=== PATIENT | male | born 1960 | race Caucasian/White ===

== ENCOUNTER 2024-10-10 11:51 | Inpatient (IN) | payer MEDICAID ==
[~2024-10-10] VITALS: Ht 190.5 cm; Wt 81.9 kg
[2024-10-10 12:34] LABS: BASOPHILS # (AUTO) 0.1 X10'3 (0-0.2); BASOPHILS % (AUTO) 0.8 % (0-1); EOSINOPHILS # (AUTO) 0.1 X10'3 (0-0.9); EOSINOPHILS % (AUTO) 0.5 % (0-6); HEMATOCRIT 43.7 % (42.0-52.0); HEMOGLOBIN 15.3 g/dl (14.0-17.9); LYMPHOCYTES # (AUTO) 0.8 X10'3 (1.1-4.8); MEAN CORPUSCULAR HEMOGLOBIN 32.6 PG (27.0-31.0); MEAN CORPUSCULAR HGB CONC 34.9 g/dL (33.0-36.5); MEAN CORPUSCULAR VOLUME 93.4 FL (78-98); MEAN PLATELET VOLUME 8.1 FL (7.4-10.4); MONOCYTES # (AUTO) 1.7 X10'3 (0-0.9); MONOCYTES % (AUTO) 10.8 % (2-12); NEUTROPHILS # (AUTO) 13.4 X10'3 (1.8-7.7); NEUTROPHILS % (AUTO) 82.9 % (42-75); PLATELET COUNT 308 X10'3 (140-440); RED BLOOD COUNT 4.67 X10'6 (4.70-6.10); RED CELL DISTRIBUTION WIDTH 13.3 % (11.5-14.5); WHITE BLOOD COUNT 16.1 X10'3 (4.5-11.0)
[2024-10-10] MEDS: ipratropium/albuterol 3ml nebule NEB ONE (12:40)
[2024-10-10] MEDS: normal saline 1000ML IV soln IVB ONE (12:43)
[2024-10-10 12:44] LABS: ALANINE AMINOTRANSFERASE 35 U/L (12-78); ALBUMIN 3.1 G/DL (3.4-5.0); ALBUMIN/GLOBULIN RATIO 0.6 (1.1-1.5); ALKALINE PHOSPHATASE 113 IU/L (46-116); ANION GAP 9 (8-16); ASPARTATE AMINO TRANSFERASE 22 U/L (10-37); BILIRUBIN,TOTAL 1.4 MG/DL (0.1-1.0); BLOOD UREA NITROGEN 10 MG/DL (7-18); BUN/CREATININE RATIO 10.1 (10.0-20.0); CALCIUM 9.3 MG/DL (8.5-10.1); CHLORIDE 95 MMOL/L (99-107); CREATININE 0.99 MG/DL (0.60-1.10); GLUCOSE 138 MG/DL (70-104); POTASSIUM 4.1 MMOL/L (3.5-5.1); SODIUM 132 MMOL/L (135-145); TOTAL CARBON DIOXIDE 28.5 MMOL/L (24-32); eCRCL 90 ML/MIN; eGFR 77 ML/MIN
[2024-10-10] MEDS: ketorolac trometh 15mg/ml vial 15 MG/ML ML IV ONE (12:44)
[2024-10-10 12:51] LABS: PRO BRAIN NATRIURETIC PEPTIDE 81 PG/ML (0-125)
[2024-10-10 13:02] LABS: D-DIMER 1.08 MG/L FEU (0-0.50)
[2024-10-10] MEDS: CefTRIAXone 2gm/D5W 50ml BAG 50 ML IV ONE (13:14)
[2024-10-10] MEDS ORDERED: LORazepam 1 MG tablet PO ONE (14:00)
[2024-10-10] MEDS ORDERED: HYDROcodone/acetaminophen 5mg/325mg tablet PO ONE (14:00)
[2024-10-10] MEDS ORDERED: ibuprofen tablet 400 MG TABLET PO ONE (14:00)
[2024-10-10] MEDS: azithromycin/NS 500mg/250ml 250 ML IV ONE (14:01)
[2024-10-10] MEDS ORDERED: potassium Cl 40MEQ/1/2NS 520ml 520 ML IV PRN (14:25)
[2024-10-10] MEDS ORDERED: acetaminophen 325mg tablet PO PRN ×2 (14:25)
[2024-10-10] MEDS ORDERED: potassium Cl 20 mEq SR tablet PO PRN ×2 (14:25)
[2024-10-10] MEDS ORDERED: mag hydrox/Alum hydrox/simeth 30ml oral suspension PO PRN (14:25)
[2024-10-10] MEDS ORDERED: magnesium hydroxide 30ml (MOM) UD suspension PO PRN (14:25)
[2024-10-10] MEDS ORDERED: HYDROmorphone/PF 0.2 MG/ML SYRINGE IV PRN (14:25)
[2024-10-10] MEDS ORDERED: HYDROmorphone inj. 0.5 MG/0.5 ML DISP.SYRIN IV PRN (14:25)
[2024-10-10] MEDS ORDERED: magnesium sulf-water 4G/100mL 100 ML IV PRN (14:25)
[2024-10-10] MEDS ORDERED: ondansetron/PF 4mg/2ml inj IV PRN (14:25)
[2024-10-10] MEDS ORDERED: magnesium sulf-water 2g/50mL 50 ML IV PRN (14:25)
[2024-10-10] MEDS ORDERED: magnesium Cl slow-release 64mg tablet PO PRN (14:25)
[2024-10-10] MEDS ORDERED: albuterol 2.5 MG/3 ML nebule NEB PRN (14:35)
[2024-10-10] MEDS: ipratropium/albuterol 3ml nebule NEB SCH (14:51)
[2024-10-10 14:55] VITALS: PULSE 72; PULSE 79; RESP 16; RESP 17; O2SAT 100; O2SAT 96
[2024-10-10] MEDS: normal saline 1000ml 1,000 ML IV SCH (15:44)
[2024-10-10] MEDS: methylPREDNISolone sod succ 125mg/2ml vial IV ONE (15:44)
[2024-10-10] MEDS: heparin, porcine 5000 units/ml vial SQ SCH (16:00)
[2024-10-10] MEDS ORDERED: iohexol 350MG/ML 100ml bottle IV ONE (16:05)
[2024-10-10] MEDS ORDERED: LORA10TA7 PO (17:54)
[2024-10-10] MEDS ORDERED: BUDE10.7 INH (17:54)
[2024-10-10 18:18] LABS: BILIRUBIN,DIRECT 0.3 MG/DL (0-0.3)
[2024-10-10 18:40] LABS: BILIRUBIN,URINE NEGATIVE (Neg); CLARITY,URINE CLEAR (Clear); COLOR,URINE YELLOW (Yellow); GLUCOSE, URINE NEGATIVE (Neg); KETONES,URINE TRACE mg/dl (Neg); LEUKOCYTE ESTERASE ,URINE NEGATIVE (Neg); NITRITES, URINE NEGATIVE (Neg); OCCULT BLOOD,URINE NEGATIVE (Neg); PH,URINE 5.5 (4.8-8.0); PROTEIN,URINE NEGATIVE (Neg); UROBILINOGEN,URINE 0.2 E.U/dL (0.2-1.0)
[2024-10-10 18:49] LABS: UA COLLECTION TYPE VOIDED
[2024-10-10 19:09] VITALS: PULSE 64; RESP 16; O2SAT 94
[2024-10-10 19:12] LABS: SODIUM,URINE RANDOM < 15 MEQ/L
[2024-10-10 19:17] VITALS: PULSE 57; RESP 16
[2024-10-10 19:30] LABS: OSMOLALITY UA 289 MOSM/K (50-1400)
[2024-10-10] MEDS: docusate sod 100mg capsule PO SCH (20:00)
[2024-10-10] MEDS: methylPREDNISolone sod succ/PF 40mg inj. IV SCH (20:20)
[2024-10-10] MEDS: K and/or MAG REPLACEMENT MC SCH (20:23)
[2024-10-10 22:39] VITALS: PULSE 74; RESP 16; O2SAT 98
[2024-10-10 22:46] VITALS: PULSE 73; RESP 16
[2024-10-10 23:30] VITALS: BP 153/71; PULSE 78; RESP 19; TEMP 98.3; O2SAT 100
[2024-10-11] VITALS (17 sets, daily range): BP systolic 101–160; BP diastolic 65–81; PULSE 64–83; RESP 14–21; TEMP 97.3–98.7; O2SAT 94–98
[2024-10-11 06:53] LABS: BASOPHILS % (AUTO) 0.1 % (0-1); EOSINOPHILS % (AUTO) 0.1 % (0-6); HEMATOCRIT 39.4 % (42.0-52.0); HEMOGLOBIN 13.7 g/dl (14.0-17.9); LYMPHOCYTES # (AUTO) 0.3 X10'3 (1.1-4.8); LYMPHOCYTES % (AUTO) 2.9 % (21-51); MEAN CORPUSCULAR HEMOGLOBIN 32.1 PG (27.0-31.0); MEAN CORPUSCULAR HGB CONC 34.7 g/dL (33.0-36.5); MEAN CORPUSCULAR VOLUME 92.5 FL (78-98); MEAN PLATELET VOLUME 8.1 FL (7.4-10.4); MONOCYTES # (AUTO) 0.5 X10'3 (0-0.9); MONOCYTES % (AUTO) 4.5 % (2-12); NEUTROPHILS # (AUTO) 9.5 X10'3 (1.8-7.7); NEUTROPHILS % (AUTO) 92.4 % (42-75); PLATELET COUNT 321 X10'3 (140-440); RED BLOOD COUNT 4.26 X10'6 (4.70-6.10); RED CELL DISTRIBUTION WIDTH 13.1 % (11.5-14.5); WHITE BLOOD COUNT 10.3 X10'3 (4.5-11.0)
[2024-10-11 07:31] LABS: ALANINE AMINOTRANSFERASE 31 U/L (12-78); ALBUMIN 2.5 G/DL (3.4-5.0); ALBUMIN/GLOBULIN RATIO 0.6 (1.1-1.5); ALKALINE PHOSPHATASE 91 IU/L (46-116); ANION GAP 9 (8-16); ASPARTATE AMINO TRANSFERASE 11 U/L (10-37); BILIRUBIN,TOTAL 0.4 MG/DL (0.1-1.0); BLOOD UREA NITROGEN 12 MG/DL (7-18); BUN/CREATININE RATIO 15.2 (10.0-20.0); CALCIUM 8.7 MG/DL (8.5-10.1); CHLORIDE 109 MMOL/L (99-107); CREATININE 0.79 MG/DL (0.60-1.10); GLUCOSE 190 MG/DL (70-104); MAGNESIUM 2.2 MG/DL (1.5-2.4); POTASSIUM 4.2 MMOL/L (3.5-5.1); SODIUM 144 MMOL/L (135-145); TOTAL CARBON DIOXIDE 26.4 MMOL/L (24-32); TOTAL PROTEIN 6.9 G/DL (6.4-8.2); eCRCL 112 ML/MIN; eGFR > 90 ML/MIN
[2024-10-11] MEDS: azithromycin/NS 500mg/250ml 250 ML IV ONE (09:06)
[2024-10-11] MEDS: CefTRIAXone/D5W-Rocephin 1gm 50 ML IV SCH (09:06)
[2024-10-11] MEDS ORDERED: LORazepam 1 MG tablet PO PRN (11:35)
[2024-10-11] MEDS ORDERED: haloperidol 5mg tablet PO PRN (11:35)
[2024-10-11] MEDS: methylPREDNISolone sod succ/PF 40mg inj. IV SCH (13:04)
[2024-10-11] MEDS: thiamine 100mg/ml 2ml inj. IV SCH (13:04)
[2024-10-11] MEDS: amLODIPine 5mg tablet PO ONE (13:05)
[2024-10-12 02:00] VITALS: BP 126/62; PULSE 65; RESP 14; TEMP 99; O2SAT 95
[2024-10-12 06:00] VITALS: BP 138/63; PULSE 68; RESP 16; TEMP 97.4; O2SAT 94
[2024-10-12 07:26] LABS: BASOPHILS % (AUTO) 0.1 % (0-1); EOSINOPHILS % (AUTO) 0 % (0-6); HEMATOCRIT 36.3 % (42.0-52.0); HEMOGLOBIN 12.3 g/dl (14.0-17.9); LYMPHOCYTES # (AUTO) 0.7 X10'3 (1.1-4.8); LYMPHOCYTES % (AUTO) 3.6 % (21-51); MEAN CORPUSCULAR HEMOGLOBIN 31.4 PG (27.0-31.0); MEAN CORPUSCULAR HGB CONC 33.8 g/dL (33.0-36.5); MEAN CORPUSCULAR VOLUME 92.9 FL (78-98); MONOCYTES # (AUTO) 1.2 X10'3 (0-0.9); MONOCYTES % (AUTO) 6.4 % (2-12); NEUTROPHILS % (AUTO) 89.9 % (42-75); PLATELET COUNT 364 X10'3 (140-440); RED BLOOD COUNT 3.91 X10'6 (4.70-6.10); RED CELL DISTRIBUTION WIDTH 13.2 % (11.5-14.5); WHITE BLOOD COUNT 18.9 X10'3 (4.5-11.0)
[2024-10-12 07:41] LABS: PROTHROMBIN TIME 10.6 SECONDS (9.0-12.0)
[2024-10-12 07:49] LABS: ALANINE AMINOTRANSFERASE 33 U/L (12-78); ALBUMIN 2.2 G/DL (3.4-5.0); ALBUMIN/GLOBULIN RATIO 0.6 (1.1-1.5); ALKALINE PHOSPHATASE 83 IU/L (46-116); ANION GAP 7 (8-16); ASPARTATE AMINO TRANSFERASE 20 U/L (10-37); BILIRUBIN,TOTAL 0.3 MG/DL (0.1-1.0); BLOOD UREA NITROGEN 14 MG/DL (7-18); BUN/CREATININE RATIO 16.9 (10.0-20.0); CALCIUM 8.6 MG/DL (8.5-10.1); CHLORIDE 108 MMOL/L (99-107); CREATININE 0.83 MG/DL (0.60-1.10); GLUCOSE 139 MG/DL (70-104); LIPASE 25 U/L (16-77); MAGNESIUM 1.9 MG/DL (1.5-2.4); PHOSPHORUS 3.5 MG/DL (2.3-4.5); SODIUM 141 MMOL/L (135-145); TOTAL CARBON DIOXIDE 26.1 MMOL/L (24-32); TOTAL PROTEIN 6.2 G/DL (6.4-8.2); eCRCL 107 ML/MIN; eGFR > 90 ML/MIN
[2024-10-12 08:00] VITALS: RESP 16; O2SAT 94
[2024-10-12 08:26] VITALS: PULSE 64; RESP 18; O2SAT 95
[2024-10-12 08:35] VITALS: PULSE 65; RESP 18
[2024-10-12] MEDS: folic acid 1mg/0.2ml inj IV SCH (08:55)
[2024-10-12 11:00] VITALS: BP 129/62; PULSE 72; RESP 18; TEMP 97.6; O2SAT 95
[2024-10-12 11:09] LABS: HBSAG SCREEN Negative (Negative); HEP B CORE AB, IGM Negative (Negative); HEPATITIS C VIRUS ANTIBODY Non Reactive (Non Reactive)
[2024-10-12] MEDS ORDERED: MULT-25 PO ×2 (11:35→14:20)
[2024-10-12] MEDS ORDERED: FOLI1TAB27 PO ×2 (11:35→14:20)
[2024-10-12] MEDS ORDERED: LACT1CAP26 PO ×2 (11:35→14:20)
[2024-10-12] MEDS ORDERED: CEFD300C3 PO ×2 (11:35→14:20)
[2024-10-12] MEDS ORDERED: THIA100T66 PO ×2 (11:35→14:20)
[2024-10-12] MEDS ORDERED: PRED10TA23 PO ×2 (11:35→14:20)
[2024-10-12] MEDS ORDERED: CHLO25CA10 PO ×2 (11:35→14:20)
[2024-10-12] MEDS ORDERED: ALBU8HFA INH ×2 (11:58→14:20)
[2024-10-12 14:16] LABS: HEP B SURF AB Non Reactive (.)
== END 2024-10-12 12:28 | disposition home or self-care (01) | DRG 140 ==
LOC: ER 11:52 → ED HOLD 14:21 → PCU 3S 23:19
PROVIDERS: ADMIT Family Medicine; ATTEND Family Medicine
PROC: B32T1ZZ Computerized Tomography (CT Scan) of Left Pulmonary Artery using Low Osmolar Contrast (ICD-10-PCS; principal; 2024-10-10)
PROC: B3201ZZ Computerized Tomography (CT Scan) of Thoracic Aorta using Low Osmolar Contrast (ICD-10-PCS; 2024-10-10)
PROC: B32S1ZZ Computerized Tomography (CT Scan) of Right Pulmonary Artery using Low Osmolar Contrast (ICD-10-PCS; 2024-10-10)
DX: J44.1 Chronic obstructive pulmonary disease with (acute) exacerbation (principal); J18.9 Pneumonia, unspecified organism; E87.1 Hypo-osmolality and hyponatremia; K70.9 Alcoholic liver disease, unspecified; Z20.822 Contact with and (suspected) exposure to COVID-19; J44.0 Chronic obstructive pulmonary disease with (acute) lower respiratory infection; E80.6 Other disorders of bilirubin metabolism
CPT/HCPCS: 36415; 71045; 71275; 80053; 81003; 82248; 83605; 83690; 83735; 83880; 83930; 83935; 84100; 84145; 84300; 84484; 85025; 85379; 85610; 86705; 86706; 86803; 87081; 87340; 87502; 87503; 87522; 87811; 93005; 94640; 94760; 99285; G0378; J0456; J0696; J1644; J1885; J2919; J3411; J3490; J7030; Q9967